=== PATIENT | female | born 1985 | race Asian ===

== ENCOUNTER 2018-08-18 09:17 | Emergency (ER) | payer OTHER ==
[~2018-08-18] VITALS: Ht 152.4 cm; Wt 62.1 kg
[2018-08-18 09:29] VITALS: BP 128/74; Ht 152.4 cm; Wt 62.1 kg
[2018-08-18 10:48] LABS: BASOPHIL % 0.3 % (0-2); PLATELET COUNT 311 x10^3mcL (130-400); RED CELL DISTRIBUTION WIDTH 13.4 % (11.5-14.5)
[2018-08-18 10:52] LABS: CALCIUM 8.1 mg/dL (8.5-10.1); CHLORIDE SERUM 107 mmol/L (98-107); CREATININE SERUM 0.7 mg/dL (0.6-1.0); GFR1 > 60 mL/min; GLUCOSE SERUM 90 mg/dL (74-106); POTASSIUM SERUM 3.5 mmol/L (3.5-5.1); SODIUM SERUM 138 mmol/L (136-145)
[2018-08-18 10:57] LABS: ALKALINE PHOSPHATASE 91 U/L (46-116); ALT/SGPT 43 U/L (14-59); AST/SGOT 23 U/L (15-37); BILIRUBIN TOTAL 0.4 mg/dL (0.20-1.00); LIPASE 144 IU/L (73-393)
[2018-08-18 11:01] LABS: ALBUMIN 2.8 g/dL (3.4-5.0)
== END 2018-08-18 11:57 | disposition home or self-care (01) ==
LOC: ED 09:17
PROVIDERS: Emergency Medicine
DX: O91.22 Nonpurulent mastitis associated with the puerperium (principal)
CPT/HCPCS: J0696; J7030